=== PATIENT | female | born 1990 | race Caucasian/White ===

== ENCOUNTER 2023-04-24 20:05 | Emergency (ER) | payer OTHER ==
[~2023-04-24] VITALS: Ht 165.1 cm; Wt 99.8 kg
[2023-04-24] MEDS ORDERED: HYDROCODONE/APAP 10/325MG TABLET PO ONE (20:30)
[2023-04-24] MEDS ORDERED: HYDROCODONE/APAP 10/325MG TABLET ONE (20:33)
[2023-04-24] MEDS ORDERED: PROPOFOL 20 ML IV ONE (21:24)
[2023-04-24] MEDS ORDERED: PROPOFOL 200 MG/20 ML VIAL IV ONE ×2 (21:30→22:30)
[2023-04-24] MEDS ORDERED: OXYC-133 PO (23:17)
[2023-04-24] MEDS ORDERED: HYDROCODONE/APAP 5/325MG TABLET ONE (23:24)
[2023-04-24] MEDS ORDERED: HYDROCODONE/APAP 5/325MG TABLET PO ONE (23:30)
[2023-04-25 00:09] VITALS: BP 130/63; TEMP 98.2; O2SAT 98
== END 2023-04-25 00:09 | disposition home or self-care (01) ==
LOC: ER 20:15
DX: S82.892A Other fracture of left lower leg, initial encounter for closed fracture (principal); F32.A Depression, unspecified; W17.89XA Other fall from one level to another, initial encounter; Y93.89 Activity, other specified; Y92.89 Other specified places as the place of occurrence of the external cause; Y99.8 Other external cause status
CPT/HCPCS: 27788; 73610; 99152; 99285; J2704; J7030; G0500

== ENCOUNTER 2024-03-17 19:08 | Emergency (ER) | payer OTHER ==
[~2024-03-17] VITALS: Ht 165.1 cm; Wt 88.5 kg
[~2024-03-17 19:08] MED LIST: OXYC-133 PO
[2024-03-17 20:50] LABS: BASOPHILS # (AUTO) 0.1 K/uL (0.0-0.2); BASOPHILS % (AUTO) 1.1 % (0.0-2.0); EOSINOPHILS # (AUTO) 0.3 K/uL (0.0-0.7); EOSINOPHILS % (AUTO) 3.4 % (0.0-6.0); LYMPHOCYTES # (AUTO) 3.3 K/uL (0.8-4.8); LYMPHOCYTES % (AUTO) 37.4 % (20.0-44.0); MEAN CORPUSCULAR HEMOGLOBIN 19 PG (26.0-33.0); MEAN CORPUSCULAR HGB CONC 31 g/dl (31.0-36.0); MEAN CORPUSCULAR VOLUME 61 fL (82-100); MONOCYTES # (AUTO) 0.6 K/uL (0.1-1.30); MONOCYTES % (AUTO) 7.2 % (2.0-12.0); NEUTROPHILS # (AUTO) 4.5 K/uL (1.8-8.9); NEUTROPHILS % (AUTO) 50.9 % (43.0-81.0); PLATELET COUNT (AUTO) 331 K/uL (150-450); RED BLOOD CELL COUNT(AUTO) 3.73 MIL/uL (4.0-5.2); RED CELL DISTRIBUTION WIDTH 16.2 % (11.5-15.0); WHITE BLOOD COUNT (AUTO) 8.8 K/uL (4.3-11.0)
[2024-03-17 20:56] LABS: CALCIUM, SERUM 8.7 mg/dL (8.5-10.1); CREATININE 0.8 mg/dL (0.6-1.3); POTASSIUM 3.9 mmol/L (3.5-5.1)
[2024-03-17 21:00] LABS: HEMATOCRIT 23 % (33-45); HEMOGLOBIN 6.9 g/dL (11.5-14.8)
[2024-03-17 21:03] LABS: INR 0.95 (0.91-1.10); PARTIAL THROMBOPLASTIN TIME 24.1 SEC (24.3-34.3); PROTHROMBIN TIME 9.8 SECS (9.2-11.1)
[2024-03-18 06:37] LABS: BAND % (MANUAL) 2 % (0.0-5.0); EOSINOPHILS % (MANUAL) 3 % (0-4); LYMPHOCYTES % (MANUAL) 35 % (16-48); METAMYELOCYTES % 1 % (0-0); MONOCYTES % (MANUAL) 7 % (0-11.0); MYELOCYTES % 1 % (0-0); NEUTROPHILS % (MANUAL) 51 (42-76)
[2024-03-18 06:38] LABS: ANISOCYTOSIS 2+; HYPOCHROMASIA 1+; OVALOCYTES 1+; PLATELET ESTIMATE ADEQUATE
[2024-03-18 11:22] VITALS: BP 120/65; TEMP 97.5; O2SAT 100
== END 2024-03-18 11:15 | disposition home or self-care (01) ==
LOC: ER 19:14
DX: D64.9 Anemia, unspecified (principal); R53.83 Other fatigue; D25.9 Leiomyoma of uterus, unspecified; F32.A Depression, unspecified; Z86.018 Personal history of other benign neoplasm
CPT/HCPCS: 99285; 36430; 85025; 80048; 85007; 36415; 85730; 86850; 86923; J7050; P9016